=== PATIENT | male | born 1980 | race Caucasian/White ===

== ENCOUNTER 2017-01-04 07:15 | Day surgery (SDC) | payer OTHER ==
[2017-01-01 15:42] VITALS: BMI 29.6
--- NOTE | 2017-01-04 08:30 | HP ---
[facility] - Chief Complaint Chief Complaint: right elbow pain - Past Medical History Allergies/Adverse Reactions: Allergies Allergy/AdvReac Type Severity Reaction Status Date / Time No Known Drug Allergies Allergy Verified 01/01/17 15:42 - Current Medications Current Medications: Home Medications Medication Instructions Recorded Hydrocodone/Acetaminophen [Donora 1 each PO Q6H PRN #40 tablet MDD 4 01/04/17 5-325 Tablet] [facility] Physical Exam - Physical Examination General Appearance: Well Nourished, Well Developed, Alert & Oriented x3 ENT: Clear Lung: Normal air movement Heart: Regular rate & rhythm Extremities: Other (right elbow- + swelling, + ttp, unable to actively extend elbow, nvi) Neurological: Intact, Alert, Oriented [facility] Impression/Plan - Impression/Plan Impression: right elbow triceps tendon rupture Operative Procedure: right tricep tendon repair Date to be Performed: 01/04/17
[2017-01-04] MEDS ORDERED: MIDAZOLAM HCL 2 MG/2 ML SINGLE DOSE VIAL ONE (09:04)
[2017-01-04] MEDS ORDERED: ROCURONIUM BROMIDE 50 MG/5 ML VIAL ONE (09:19)
[2017-01-04] MEDS ORDERED: LIDOCAINE HCL/PF 2% SDV 5ML VIAL ONE (09:19)
[2017-01-04] MEDS ORDERED: PROPOFOL 20 ML ONE (09:19)
[2017-01-04] MEDS ORDERED: ceFAZolin SODIUM 1 GM VIAL ONE (09:28)
[2017-01-04] MEDS ORDERED: ceFAZolin SODIUM 1 GM VIAL IVPB ONE (09:29)
[2017-01-04] MEDS ORDERED: DEXAMETHASONE SOD PHOSPHATE 4 MG/1 ML VIAL ONE ×2 (09:39→10:37)
[2017-01-04] MEDS ORDERED: BUPIVACAINE HCL/PF 0.5% (5MG/ML) 10 ML VIAL ONE (10:07)
[2017-01-04] MEDS ORDERED: NEOSTIGMINE METHYLSULFATE 0.5 MG/ML - 10 ML MDV ONE (10:31)
--- NOTE | 2017-01-04 10:59 | OP ---
Operative Note - Note: Operative Date: 01/04/17 ([facility]) Pre-Operative Diagnosis: right tricep tendon rupture Operation: right tricep tendon repair Post-Operative Diagnosis: Same as Pre-op Surgeon: Carlos Ross Deputy Treasurer: Mateo Edgar Anesthesiologist/COLLEGE ATHLETE: Anjum Burks Anesthesia: General, Local Estimated Blood Loss (mls): 0 (tourniquet) Operative Report Dictated: Yes
[2017-01-04] MEDS ORDERED: ACETAMINOPHEN 1000 MG/100 ML VIAL (NON FORMULARY) IVPB PRN (11:04)
[2017-01-04] MEDS ORDERED: oxyCODONE HCL 5 MG TABLET PO PRN (11:04)
[2017-01-04] MEDS ORDERED: ONDANSETRON 4 MG/2 ML VIAL IVPUSH PRN (11:04)
[2017-01-04] MEDS ORDERED: ACETAMINOPHEN INJECTION 100 ML IVPB ONE (11:07)
[2017-01-04] MEDS ORDERED: LACTATED RINGERS SOLUTION 1,000 ML IV SCH (11:15)
[2017-01-04] MEDS ORDERED: LABETALOL HCL 5 MG/1 ML (100MG/20 ML VIAL) ONE (12:11)
--- NOTE | 2017-01-04 12:18 | OP ---
DATE OF OPERATION: 01/04/2017 PREOPERATIVE DIAGNOSIS: Right triceps tendon rupture. POSTOPERATIVE DIAGNOSIS: Right triceps tendon rupture. PROCEDURE: Right triceps tendon repair. SURGEON: Sharda Garcia MD WOOD STOCK BLANK HANDLER: TAMMY Anderson ANESTHESIOLOGIST: Yemi Burks MD ANESTHESIA: LMA anesthesia, local injection of 20 mL of 0.50% Marcaine. DRAINS: None. COMPLICATIONS: None. SPECIMEN: None. BLOOD LOSS: None. BLOOD GIVEN: None. FLUID REPLACEMENT: 1000 mL INDICATIONS: This patient is a 36-year-old [id number] male who has a right triceps tendon rupture. After understanding the potential risks, complications, alternatives, and benefits of surgery versus nonsurgical treatment, the patient elected to undergo this procedure. DESCRIPTION OF PROCEDURE: The patient brought into the operating room, a peripheral IV was placed and IV sedation given. Then, 2 g of IV Ancef were given. LMA anesthesia was induced. He was placed into lateral position. The right upper extremity was prepped and draped in a sterile fashion, elevated, exsanguinated with an Esmarch bandage, and tourniquet inflated to 250 mmHg. A longitudinal incision was marked out over the distal triceps tendon, made with a number 15 scalpel blade. Subcutaneous hemostasis achieved with the Bovie cautery. Dissection done with a Metzenbaum scissors through inflammatory tissue, the bursa, and down to the triceps tendon, which was completely torn off the olecranon. Some inflammatory tissue was removed. Medial and lateral flaps were made and the distal triceps was mobilized with a Brooks elevator. I needed to break through some scar tissue which had formed over the last 3 weeks since the injury. The anterior fibers of the triceps were intact but I would say 85% of them were ruptured off the triceps. This retracted tendon was mobilized and brought out to length with the arm in extension. Next, 3 FiberWires were put through the distal triceps tendon in a locked whip stitch fashion. The Beath pin was used to drill through the olecranon, feed through the FiberWire tails, and bring it out more distally. This was able to bring down the triceps tendon to the triceps insertion very well. Four tails were tied together over the olecranon. Then, two others were tied separately, and insurance stitches were done. Overall, this brought it down quite well. Then, I used FiberWire to do many supplemental stitches in the middle portion of the triceps tendon, the medial and lateral aspects. There were some deeper FiberWire stitches to sew the anterior to the posterior aspect of the triceps. This was done more in the middle. Overall, it came together quite nicely. I was able to flex the elbow to about 40 degrees before there was some undue tension on the repair and therefore, this is where we would put him in the posterior splint. The area was then copiously irrigated and washed out. More superficial tissue was repaired over the triceps repair using 2-0 Vicryl sutures. The deep dermal layer was closed with 2-0 Vicryl sutures. Final skin reapproximation was done with sheri. The area was then washed and dried, covered with Xeroform, 4 x 4 gauze, Webril, and a 6-inch posterior Ortho-Glass splint was applied and wrapped with Kerlix and two Elio bandages. Total tourniquet time was about 75 minutes. There were no complications during the case. The patient tolerated the procedure well and was brought to the ambulatory recovery room in stable condition. SHARDA GARCIA M.D. [id number]
[2017-01-04] MEDS ORDERED: LABETALOL HCL 5 MG/1 ML (100MG/20 ML VIAL) IVPUSH ONE ×2 (12:31→12:45)
[2017-01-04 13:15] VITALS: TEMP 98.6
[2017-01-04] MEDS ORDERED: oxyCODONE HCL 5 MG TABLET PO ONE (13:55)
[2017-01-04] MEDS ORDERED: oxyCODONE HCL 5 MG TABLET ONE (13:57)
[2017-01-04 17:21] VITALS: BP 119/79; PULSE 66
== END 2017-01-04 15:40 | disposition home or self-care (01) ==
LOC: JASU-SURG 07:15
PROVIDERS: ATTEND Orthopaedic Surgery
PROC: 0LQ30ZZ Repair Right Upper Arm Tendon, Open Approach (ICD-10-PCS; principal; 2017-01-04 09:00)
DX: S46.311A Strain of muscle, fascia and tendon of triceps, right arm, initial encounter (principal); X58.XXXA Exposure to other specified factors, initial encounter; Y93.9 Activity, unspecified; Y92.9 Unspecified place or not applicable; Y99.9 Unspecified external cause status
CPT/HCPCS: 94760